=== PATIENT | female | born 1995 | race Asian ===

== ENCOUNTER → 2021-06-01 | Emergency (ER) | payer BC ==
[~2021-06-01] VITALS: Ht 160 cm; Wt 49.9 kg
== END | disposition home or self-care (01) ==
LOC: ER 10:36
DX: M54.50 Low back pain, unspecified (principal); S49.92XA Unspecified injury of left shoulder and upper arm, initial encounter; V80.010A Animal-rider injured by fall from or being thrown from horse in noncollision accident, initial encounter; Y93.52 Activity, horseback riding; Y92.9 Unspecified place or not applicable; Y99.9 Unspecified external cause status